=== PATIENT | female | born 1930 | race Caucasian/White ===

== ENCOUNTER 2021-07-31 14:52 | Inpatient (IN) | payer MEDICARE, BC ==
[~2021-07-31] VITALS: Ht 152.4 cm; Wt 42.8 kg
[~2021-07-31 14:52] MED LIST: ACET-2154 PO; ASCO500P18 PO; CALC1TAB30 PO; HYDR-3972 PO; MAGN400O6 PO; METO50TA16 PO; NAPR-1160 PO; POTA10CA43 PO
[2021-07-31 15:41] LABS: CARBON DIOXIDE 30 mmol/L (21-32); CHLORIDE 103 mmol/L (98-107); CREATININE 0.6 mg/dL (0.6-1.3); GLUCOSE 85 mg/dL (74-106); HEMATOCRIT 41.2 % (31.2-41.9); MEAN CORPUSCULAR HEMOGLOBIN 32.5 uug (24.7-32.8); MEAN CORPUSCULAR VOLUME 95.5 fL (75.5-95.3); PLATELET COUNT (AUTO) 208 K/uL (179-408); POTASSIUM 4.1 mmol/L (3.5-5.1); UREA NITROGEN, BLOOD 18 mg/dL (7-18)
--- NOTE | 2021-07-31 15:45 | NUR ---
Called for transport -- [facility] -- ETA [id number]
[2021-07-31 15:50] LABS: ALANINE AMINOTRANSFERASE 55 U/L (14-59); ALKALINE PHOSPHATASE 148 U/L (50-136); ASPARTATE AMINOTRANSFERASE 37 U/L (15-37); BILIRUBIN,DIRECT 0.2 mg/dL (0.0-0.2); BILIRUBIN,TOTAL 0.8 mg/dL (0.2-1.0); TOTAL PROTEIN, SERUM 6.9 g/dL (6.4-8.2)
--- NOTE | 2021-07-31 15:50 | NUR ---
Called report to "Ginna" at [facility].
[2021-07-31] MEDS ORDERED: RIVA1PAT TP (16:42)
[2021-07-31] MEDS ORDERED: MENT71OI TP (16:42)
[2021-07-31] MEDS ORDERED: BISM262T15 PO (16:42)
[2021-07-31] MEDS ORDERED: ATOR20TA PO (16:42)
[2021-07-31] MEDS ORDERED: QUET25TA PO (16:42)
[2021-07-31] MEDS ORDERED: AMIN30LI2 PO (16:42)
[2021-07-31] MEDS ORDERED: LOPE2CAP PO (16:52)
[2021-07-31] MEDS ORDERED: DIVA125T2 PO (16:52)
[2021-07-31] MEDS ORDERED: ONDA-104 PO (16:52)
[2021-07-31] MEDS ORDERED: MEMA10TA PO (16:52)
[2021-07-31] MEDS ORDERED: ACETAMINOPHEN 325 MG TABLET PO PRN (17:00)
[2021-07-31] MEDS ORDERED: ONDANSETRON 4 MG/2 ML VIAL IV PRN (17:00)
[2021-07-31] MEDS ORDERED: REMEDY ESSENTIAL ZINC PASTE 113 GM TP PRN (17:00)
[2021-07-31] MEDS ORDERED: MAGNESIUM HYDROXIDE 30 ML LIQUID UDC PO PRN ×2 (17:00→17:15)
[2021-07-31] MEDS ORDERED: ONDANSETRON HCL 4 MG TABLET PO PRN (17:15)
[2021-07-31] MEDS ORDERED: BISMUTH SUBSALICYLATE 524 MG PO PRN (17:15)
[2021-07-31] MEDS ORDERED: ACETAMINOPHEN 325 MG TABLET-SA PATIENTS-PAIN ONLY PO SCH (17:15)
[2021-07-31] MEDS ORDERED: NAPROXEN SODIUM 220 MG PO SCH (17:15)
[2021-07-31] MEDS ORDERED: BISMUTH SUBSALICYLATE 262 MG/15 ML UDC PO PRN (17:30)
[2021-07-31] MEDS ORDERED: NAPROXEN 250 MG TABLET PO PRN (17:30)
--- NOTE | 2021-07-31 19:58 | NUR ---
GAVE REPORT TO PEDRO AMES.
--- NOTE | 2021-07-31 20:30 | NUR ---
Admitted a 89 years old female with Dx of Syncope and Acute Encephalopathy. Patient alert but confused and disoriented. In no apparent distress. No signs or symptoms of pain or SOB. Fearful to care, but calm when left alone. NSR on tele with HR of 60/min. IV site on right AC intact and patent. Routine admission care done. Plan of care initiated. Safety measure initiated and call light within reached.
[2021-07-31] MEDS: IV D5 1/2 NS 1000 ML 1,000 ML IV PRN (20:44)
--- NOTE | 2021-07-31 20:46 | NUR ---
Pt. admitted to TELE 314 , under care of INSURANCE CLAIMS PROCESSOR Gloria Grimes Dx: ACUTE ENCEPHALAPATHY Belongs List completed Pt transfered in stable condition. VSS
[2021-07-31] MEDS: DIVALPROEX 125 MG TABLET.DR PO SCH (21:00)
[2021-07-31] MEDS: ATORVASTATIN 20 MG TABLET PO SCH (21:00)
[2021-07-31] MEDS: QUETIAPINE FUMARATE 25 MG TABLET PO SCH (21:00)
--- NOTE | 2021-07-31 21:00 | NUR ---
Salas catheter 16FR with 10cc balloon attached to urinary bag drainage inserted per [employer] Wilstein order. Urine specimen collected per order.
[2021-07-31 21:37] LABS: *BILIRUBIN,URIN NEGATIVE (NEGATIVE); *CLARITY,URINE CLOUDY (CLEAR); *COLOR,URINE YELLOW (YELLOW); *KETONES,URINE TRACE (NEGATIVE); LEUKOCYTE ESTERASE ,URINE 2+ (NEGATIVE); NITRITE, URINE POSITIVE (NEGATIVE); UGLUCOSE NEGATIVE (NEGATIVE)
[2021-07-31 21:39] LABS: *BLOOD, URINE TRACE (NEGATIVE)
[2021-07-31 21:53] VITALS: BP 126/61
[2021-07-31 22:21] LABS: BACTERIA,URINE MANY /HPF (NONE SEEN); SQUAMOUS EPITHELIAL CELL,UR MANY /HPF (NONE SEEN); WBC,URINE TNTC /HPF (0-3)
[2021-08-01] VITALS: BP 158/72
[2021-08-01 05:27] VITALS: BP 155/98
--- NOTE | 2021-08-01 05:55 | NUR ---
OLGA LIDIA Lino notified that pt + for UTI and ordered Cipro 500mg IV q12HRS. Order noted and will carry out.
[2021-08-01 06:13] LABS: HEMATOCRIT 37.3 % (31.2-41.9); MEAN CORPUSCULAR HEMOGLOBIN 32.6 uug (24.7-32.8); MEAN CORPUSCULAR VOLUME 96.3 fL (75.5-95.3); PLATELET COUNT (AUTO) 197 K/uL (179-408)
--- NOTE | 2021-08-01 06:13 | NUR ---
Patient mainly asleep. Easily arouse to verbal and tactile stimuli. IV on right AC remains intact and patent. IVF infusing. Had 12 beats of Vtach at 0411 and converted to V pacing after. Remains V pacing on tele with HR of 60/min. Salas catheter intact and draining via gravity. Needs assessed and attended to. Safety measure maintained and call light within reached.
[2021-08-01 06:36] LABS: CREATININE 0.7 mg/dL (0.6-1.3); PHOSPHOROUS 4.1 mg/dL (2.5-4.9); POTASSIUM 3.9 mmol/L (3.5-5.1)
[2021-08-01 07:15] LABS: THYROID STIMULATING HORMONE 3.238 mIU/mL (0.358-3.740)
[2021-08-01] MEDS: POTASSIUM CHLORIDE 10 MEQ TAB.PRT.SR PO SCH (08:18)
[2021-08-01] MEDS: METOPROLOL TARTRATE 50 MG TABLET PO SCH ×2 (08:18→16:54)
[2021-08-01] MEDS: MEMANTINE HCL 10 MG TABLET PO SCH ×2 (08:18→16:54)
[2021-08-01] MEDS: CALCIUM CARB/VITAMIN D 500MG-200UNITS TABLET PO SCH (08:18)
[2021-08-01] MEDS: ASCORBIC ACID 500 MG TABLET PO SCH (08:18)
[2021-08-01] MEDS: PROTEIN SUPPLEMENT (PROSTAT) 30 ML LIQUID PO SCH ×3 (08:19→16:54)
[2021-08-01] MEDS: PANTOPRAZOLE SODIUM 40 MG VIAL IV SCH (08:32)
[2021-08-01] MEDS: CIPROFLOXACIN IV 400 MG in PREMIXED 1 EACH IV SCH ×2 (08:33→20:35)
[2021-08-01] MEDS: RIVASTIGMINE 4.6 MG PATCH TD SCH (08:40)
[2021-08-01] MEDS ORDERED: Medication Not On Formulary EA (Ascorbic Acid (Vitamin C) 1,000 MG) PO SCH (09:00)
[2021-08-01] MEDS ORDERED: Medication Not On Formulary EA (Amino Acids/Protein Hydrolys (Pro-Stat Liquid) 30 ML) PO SCH (09:00)
[2021-08-01] MEDS ORDERED: PREMIXED IV SCH (09:00)
[2021-08-01] MEDS ORDERED: CIPROFLOXACIN IV SCH (09:00)
[2021-08-01 11:48] VITALS: BP 151/76
[2021-08-01 16:14] VITALS: BP 135/72
[2021-08-01] MEDS: IV D5 1/2 NS 1000 ML 1,000 ML IV PRN (17:39)
[2021-08-01 20:21] VITALS: BP 148/74
[2021-08-01] MEDS: QUETIAPINE FUMARATE 25 MG TABLET PO SCH (20:35)
[2021-08-01] MEDS: DIVALPROEX 125 MG TABLET.DR PO SCH (20:35)
[2021-08-01] MEDS: ATORVASTATIN 20 MG TABLET PO SCH (20:35)
[2021-08-02 04:43] VITALS: BP 137/85
--- NOTE | 2021-08-02 06:07 | NUR ---
Slept intermittently. Pt is confused, unable to make needs known. No distress noted. IV site intact. Salas intact draining to gravity. Will endorse to day shift.
[2021-08-02 06:35] LABS: HEMATOCRIT 39.2 % (31.2-41.9); MEAN CORPUSCULAR HEMOGLOBIN 32.1 uug (24.7-32.8); PLATELET COUNT (AUTO) 187 K/uL (179-408)
[2021-08-02 06:53] LABS: CREATININE 0.8 mg/dL (0.6-1.3); MAGNESIUM 2.1 mg/dL (1.8-2.4); POTASSIUM 3.5 mmol/L (3.5-5.1)
[2021-08-02] MEDS: CALCIUM CARB/VITAMIN D 500MG-200UNITS TABLET PO SCH (08:11)
[2021-08-02] MEDS: RIVASTIGMINE 4.6 MG PATCH TD SCH (08:11)
[2021-08-02] MEDS: MEMANTINE HCL 10 MG TABLET PO SCH ×2 (08:11→16:03)
[2021-08-02] MEDS: ASCORBIC ACID 500 MG TABLET PO SCH (08:11)
[2021-08-02] MEDS: POTASSIUM CHLORIDE 10 MEQ TAB.PRT.SR PO SCH (08:11)
[2021-08-02] MEDS: METOPROLOL TARTRATE 50 MG TABLET PO SCH ×2 (08:12→16:03)
[2021-08-02] MEDS: PROTEIN SUPPLEMENT (PROSTAT) 30 ML LIQUID PO SCH ×3 (08:12→16:03)
[2021-08-02] MEDS: PANTOPRAZOLE SODIUM 40 MG VIAL IV SCH (08:14)
[2021-08-02] MEDS: CIPROFLOXACIN IV 400 MG in PREMIXED 1 EACH IV SCH ×2 (08:14→20:41)
[2021-08-02 11:58] VITALS: BP 124/60
[2021-08-02 15:21] VITALS: BP 128/67
[2021-08-02] MEDS: IV D5 1/2 NS 1000 ML 1,000 ML IV PRN (16:00)
[2021-08-02 20:18] VITALS: BP 94/43
[2021-08-02] MEDS: QUETIAPINE FUMARATE 25 MG TABLET PO SCH (21:02)
[2021-08-02] MEDS: DIVALPROEX 125 MG TABLET.DR PO SCH (21:02)
[2021-08-02] MEDS: ATORVASTATIN 20 MG TABLET PO SCH (21:02)
[2021-08-03 04:18] VITALS: BP 150/86
[2021-08-03] MEDS ORDERED: PANTOPRAZOLE SODIUM 40 MG TABLET.DR PO ONE (07:30)
[2021-08-03] MEDS: CIPROFLOXACIN IV 400 MG in PREMIXED 1 EACH IV SCH ×2 (08:04→21:48)
[2021-08-03] MEDS: ASCORBIC ACID 500 MG TABLET PO SCH (08:18)
[2021-08-03] MEDS: RIVASTIGMINE 4.6 MG PATCH TD SCH (08:18)
[2021-08-03] MEDS: PROTEIN SUPPLEMENT (PROSTAT) 30 ML LIQUID PO SCH ×3 (08:19→16:34)
[2021-08-03] MEDS: CALCIUM CARB/VITAMIN D 500MG-200UNITS TABLET PO SCH (08:19)
[2021-08-03] MEDS: METOPROLOL TARTRATE 50 MG TABLET PO SCH ×2 (08:19→16:31)
[2021-08-03] MEDS: MEMANTINE HCL 10 MG TABLET PO SCH ×2 (08:19→16:31)
[2021-08-03] MEDS: POTASSIUM CHLORIDE 10 MEQ TAB.PRT.SR PO SCH (08:19)
[2021-08-03 11:48] VITALS: BP 92/59
--- NOTE | 2021-08-03 11:54 | NUR ---
WOUND CARE CONSULT: PT AGITATED AND COMBATIVE. UNABLE TO DO SKIN ASSESSMENT DUE TO PT BEHAVIOR. RECOMMENDATIONS MADE FOR SKIN PROTECTION. DISCUSSED WITH NURSING STAFF. MD IN AGREEMENT WITH PLAN OF CARE.
[2021-08-03 16:19] VITALS: BP 110/58
[2021-08-03] MEDS: IV D5 1/2 NS 1000 ML 1,000 ML IV PRN (16:54)
[2021-08-03 20:00] VITALS: BP 96/76
[2021-08-03] MEDS: QUETIAPINE FUMARATE 25 MG TABLET PO SCH (20:32)
[2021-08-03] MEDS: DIVALPROEX 125 MG TABLET.DR PO SCH (20:32)
[2021-08-03] MEDS: ATORVASTATIN 20 MG TABLET PO SCH (20:32)
[2021-08-04 04:00] VITALS: BP 120/66
[2021-08-04 06:22] LABS: MEAN CORPUSCULAR HEMOGLOBIN 32.9 uug (24.7-32.8); MEAN CORPUSCULAR VOLUME 96.8 fL (75.5-95.3); PLATELET COUNT (AUTO) 145 K/uL (179-408)
[2021-08-04 06:34] LABS: NEUTROPHILS % (MANUAL) 0 % (42-75)
[2021-08-04 06:43] LABS: CREATININE 0.9 mg/dL (0.6-1.3); MAGNESIUM 1.9 mg/dL (1.8-2.4); PHOSPHOROUS 3.4 mg/dL (2.5-4.9); POTASSIUM 4.2 mmol/L (3.5-5.1)
[2021-08-04] MEDS ORDERED: PANTOPRAZOLE SODIUM 40 MG TABLET.DR PO SCH (07:00)
[2021-08-04] MEDS: MEMANTINE HCL 10 MG TABLET PO SCH (08:11)
[2021-08-04] MEDS: POTASSIUM CHLORIDE 10 MEQ TAB.PRT.SR PO SCH (08:11)
[2021-08-04] MEDS: CALCIUM CARB/VITAMIN D 500MG-200UNITS TABLET PO SCH (08:11)
[2021-08-04] MEDS: ASCORBIC ACID 500 MG TABLET PO SCH (08:12)
[2021-08-04] MEDS: PROTEIN SUPPLEMENT (PROSTAT) 30 ML LIQUID PO SCH ×2 (08:12→12:25)
[2021-08-04] MEDS: RIVASTIGMINE 4.6 MG PATCH TD SCH (08:15)
[2021-08-04] MEDS: CIPROFLOXACIN IV 400 MG in PREMIXED 1 EACH IV SCH (08:19)
[2021-08-04] MEDS ORDERED: METOPROLOL TARTRATE 50 MG TABLET PO SCH (09:00)
[2021-08-04] MEDS ORDERED: METOPROLOL TARTRATE 25 MG TABLET PO SCH (09:00)
[2021-08-04] MEDS ORDERED: METO25TA6 PO (11:04)
[2021-08-04] MEDS ORDERED: NITR100C11 PO (11:04)
[2021-08-04 12:00] VITALS: BP 133/45
--- NOTE | 2021-08-04 13:45 | NUR ---
dc orders received noted and carried out.dc instruction and dc report given to the ambulances,dc heplock per md orders,pt left the facility via ambulances in stable condition
== END 2021-08-04 14:00 | disposition hospice, home (50) | DRG 73 ==
LOC: ER 14:52 → EDBD 14:52 → TELE3 20:02 → MEDSURG3 08-01 11:05
PROVIDERS: ADMIT Registered Nurse; ATTEND Registered Nurse
DX: G90.8 Other disorders of autonomic nervous system (principal); G92.8 Other toxic encephalopathy; N39.0 Urinary tract infection, site not specified; Z95.0 Presence of cardiac pacemaker; F02.80 Dementia in other diseases classified elsewhere, unspecified severity, without behavioral disturbance, psychotic disturbance, mood disturbance, and anxiety; B96.20 Unspecified Escherichia coli [E. coli] as the cause of diseases classified elsewhere; R62.7 Adult failure to thrive; Z66 Do not resuscitate; K58.9 Irritable bowel syndrome, unspecified; G30.9 Alzheimer's disease, unspecified; E78.5 Hyperlipidemia, unspecified; I10 Essential (primary) hypertension; Z79.899 Other long term (current) drug therapy; R53.1 Weakness; R55 Syncope and collapse
CPT/HCPCS: 36415; 70030-TC; 70450; 71045; 83605; 83735; 84100; 84443; 84484; 85025; 87040; 87077; 87086; 93005; 97161; A4663; C9113; G0378; J0744; J3490